=== PATIENT | male | born 1975 | race Caucasian/White ===

== ENCOUNTER 2021-12-28 07:08 | Emergency (ER) | payer SELFPAY ==
[~2021-12-28] VITALS: Ht 177.8 cm; Wt 90.7 kg
[2021-12-28 07:12] VITALS: BP_SYST 127
[2021-12-28 07:40] LABS: BASOPHILS # (AUTO) 0.1 K/uL (0.0-0.2); BASOPHILS % (AUTO) 0.6 % (0.0-2.0); EOSINOPHILS % (AUTO) 0.4 % (0.0-4.0); HEMATOCRIT 28.5 % (36-54); HEMOGLOBIN 9.6 g/dL (14.0-18.0); LYMPHOCYTES # (AUTO) 0.9 K/uL (1.0-5.5); LYMPHOCYTES % (AUTO) 8.8 % (20.5-51.5); MEAN CORPUSCULAR HEMOGLOBIN 27 pg (27-31); MEAN CORPUSCULAR HGB CONC 34 % (32-36); MEAN CORPUSCULAR VOLUME 79 fL (79.0-98.0); MONOCYTES # (AUTO) 0.6 K/uL (0.0-1.0); MONOCYTES % (AUTO) 5.3 % (1.7-9.3); NEUTROPHILS # (AUTO) 9.1 K/uL (1.8-7.7); NEUTROPHILS % (AUTO) 84.9 % (40.0-70.0); PLATELET COUNT (AUTO) 269 K/uL (130-430); RED BLOOD CELL COUNT(AUTO) 3.59 MIL/uL (4.2-6.2); RED CELL DISTRIBUTION WIDTH 16.2 % (9.0-15.0); WHITE BLOOD COUNT (AUTO) 10.7 K/uL (4.8-10.8)
[2021-12-28] MEDS ORDERED: NALOXONE HCL 2 MG/2 ML SYR IVP ONE (07:45)
--- NOTE | 2021-12-28 07:50 | NUR ---
In ER bed 2. ALOC. SCOTT has seen. IV placed. Blood and urine sent To CT
[2021-12-28 08:02] LABS: ANION GAP 11 (5-15); CALCIUM 9.2 mg/dL (8.4-11.0); CHLORIDE 99 mmol/L (98-107); CREATININE 1.65 mg/dL (0.55-1.30); GLUCOSE 105 mg/dL (70-99); POTASSIUM 3.9 mmol/L (3.5-5.1); SODIUM SERUM 136 mmol/L (136-145); UREA NITROGEN, BLOOD 29 mg/dL (8-21)
[2021-12-28 08:07] LABS: PROTHROMBIN TIME 10.4 SECS (9.5-12.5)
[2021-12-28 08:09] LABS: ALANINE AMINOTRANSFERASE 22 U/L (12-78); ALBUMIN 3.7 g/dL (3.4-4.8); ASPARTATE AMINOTRANSFERASE 30 U/L (10-37); C-REACTIVE PROTEIN QUANT 15.4 mg/dL (0-0.5); TOTAL BILIRUBIN 0.5 mg/dL (0.0-1.0)
[2021-12-28 08:12] LABS: ACETAMINOPHEN < 1 ug/mL (1-30); ALCOHOL, BLOOD < 3 mg/dL (<10); GFR AFRICAN AMERICAN 58 mL/min (>90)
[2021-12-28 08:24] LABS: BILIRUBIN,URINE NEGATIVE (NEGATIVE); BLOOD, URINE NEGATIVE (NEGATIVE); COLOR,URINE YELLOW (YELLOW); GLUCOSE,URINE NEGATIVE (NEGATIVE); KETONES,URINE NEGATIVE (NEGATIVE); LEUKOCYTE ESTERASE ,URINE NEGATIVE (NEGATIVE); NITRITE, URINE NEGATIVE (NEGATIVE); PH,URINE 5.5 (5.0-8.0); PROTEIN URINE NEGATIVE (NEGATIVE); UROBILINOGEN,URINE 0.2 (0.2-1.0)
[2021-12-28 08:32] LABS: CLARITY/URINE CLEAR (CLEAR)
[2021-12-28 08:32] LABS: CKMB RELATIVE INDEX 0.9 (0.0-2.9); CREATINE KINASE MB 5.7 ng/mL (0-3.6)
[2021-12-28 08:41] LABS: BARBITURATE, URINE NEGATIVE (NEG <=200); BENZODIAZEPINE, URINE POSITIVE (NEG <=150); METHAMPHETAMINES SCREEN,URINE POSITIVE (NEG <=500); URINE AMPHETAMINE POSITIVE (NEG <=500); URINE METHADONE POSITIVE (NEG <=200)
[2021-12-28 08:42] LABS: CANNABINOID, URINE NEGATIVE (NEG <=50); COCAINE, URINE NEGATIVE (NEG <=150); OPIATE, URINE POSITIVE (NEG <=100); PHENCYCLIDINE SCREEN,URINE NEGATIVE (NEG <=25); UR TRICYCLIC ANTIDEPRESSANTS NEGATIVE (NEG <=300); URINE OXYCODONE SCREEN NEGATIVE (NEG <=100); URINE PROPOXYPHENE SCREEN NEGATIVE (NEG <=300)
[2021-12-28 09:09] LABS: ACETONE, SERUM NEGATIVE (NEGATIVE)
--- NOTE | 2021-12-28 09:18 | NUR ---
Stable. VSS. Remains ALOC but responds to tactile stimuli. Does not follow. 02 Sat adequate on 2 L NC. NO SOB Labs and CT done Some results back
--- NOTE | 2021-12-28 15:01 | NUR ---
Stable. Sleeping still Arousable. Does not follow Awaiting Dispo
[2021-12-28] MEDS ORDERED: NACL 0.9% 1,000 ML IV ONE (16:45)
--- NOTE | 2021-12-28 19:35 | NUR ---
pt requested for boot to be put back on without the knee brace. PMS intact after boot was placed on
[2021-12-28 19:40] VITALS: BP_SYST 122
--- NOTE | 2021-12-28 19:40 | NUR ---
Patient given written and verbal discharge instructions and verbalizes understanding. ER MD MACE discussed with patient the results and treatment provided. Patient in stable condition. ID arm band removed. IV catheter removed intact and dressing applied, no active bleeding. Patient educated on pain management and to follow up with PMD. Pain Scale 0/10. Opportunity for questions provided and answered. Medication side effect fact sheet provided.
--- NOTE | 2021-12-28 19:46 | NUR ---
pt requested for knee brace to be applied. boot removed, the knee brace was applied, and the boot was reapplied. PMS present after application of both personal immobilization devices. Pt provided crutches at request of MD. Pt accepted. Pt stated he had a ride coming and wanted to wait outside of ER, so patient was accompanied alongside security and myself to chair outside ER.
== END 2021-12-28 19:40 | disposition home or self-care (01) ==
LOC: SED 07:08
DX: F19.10 Other psychoactive substance abuse, uncomplicated (principal); E86.0 Dehydration
CPT/HCPCS: 99285; 96374; 70450; 71045; 96361; 80307; 80053; 82009; 82140; 82550; 82553; 83880; 85025; 85610; 85730; 86140; 87040; 36415; 93005; 76376; 83605; 81003; G0480; J7030; G0481; G0482